=== PATIENT | female | born 2000 | race Two or more races ===

== ENCOUNTER 2024-04-04 01:15 | Emergency (ER) | payer OTHER ==
[~2024-04-04] VITALS: Ht 162.6 cm; Wt 81.6 kg
[2024-04-04 01:58] LABS: BASOPHILS # (AUTO) 0.1 K/UL (0.0-0.2); BASOPHILS % (AUTO) 0.5 % (0.0-2.0); EOSINOPHILS % (AUTO) 0.1 % (0.0-7.0); HEMATOCRIT 38.3 % (31.2-41.9); HEMOGLOBIN 12.8 g/dL (10.9-14.3); LYMPHOCYTES # (AUTO) 1.8 K/uL (0.8-4.8); LYMPHOCYTES % (AUTO) 7.2 % (20.5-51.5); MEAN CORPUSCULAR HEMOGLOBIN 29.9 uug (24.7-32.8); MEAN CORPUSCULAR HGB CONC 33 g/dL (32.3-35.6); MEAN CORPUSCULAR VOLUME 89.5 fL (75.5-95.3); MONOCYTES # (AUTO) 1.2 K/uL (0.1-1.30); MONOCYTES % (AUTO) 4.9 % (0.0-11.0); NEUTROPHILS # (AUTO) 21.7 K/uL (1.8-8.9); NEUTROPHILS % (AUTO) 87.3 % (38.5-71.5); PLATELET COUNT (AUTO) 315 K/uL (179-408); RED BLOOD CELL COUNT(AUTO) 4.29 MIL/uL (3.63-4.92); RED CELL DISTRIBUTION WIDTH 13.5 % (12.3-17.7); WHITE BLOOD COUNT (AUTO) 24.8 K/uL (3.8-11.8)
[2024-04-04] MEDS ORDERED: PROCHLORPERAZINE EDISYLATE 10 MG/2 ML VIAL ONE (02:05)
[2024-04-04] MEDS ORDERED: HALOPERIDOL LACTATE 5 MG/1 ML VIAL ONE (02:05)
[2024-04-04] MEDS ORDERED: diphenhydrAMINE 50 MG/1 ML VIAL ONE (02:05)
[2024-04-04] MEDS: diphenhydrAMINE 50 MG/1 ML VIAL IV ONE (02:06)
[2024-04-04] MEDS: IV NORMAL SALINE 1000 ML BAG IV ONE (02:06)
[2024-04-04] MEDS: HALOPERIDOL LACTATE 5 MG/1 ML VIAL IV ONE (02:06)
[2024-04-04] MEDS: PROCHLORPERAZINE EDISYLATE 10 MG/2 ML VIAL IV ONE (02:06)
[2024-04-04 02:09] LABS: DIFFERENTIAL COMMENT 1
[2024-04-04 02:19] LABS: CALCIUM 9.9 mg/dL (8.5-10.1); CARBON DIOXIDE 20 mmol/L (21-32); CHLORIDE 103 mmol/L (98-107); CREATININE 0.9 mg/dL (0.6-1.3); GLUCOSE 176 mg/dL (74-106); POTASSIUM 3.3 mmol/L (3.5-5.1); SODIUM SERUM 140 mmol/L (136-145); UREA NITROGEN, BLOOD 9 mg/dL (7-18)
[2024-04-04 02:24] LABS: ALANINE AMINOTRANSFERASE 22 U/L (14-59); ALBUMIN 4.2 g/dL (3.4-5.0); ALKALINE PHOSPHATASE 94 U/L (50-136); ASPARTATE AMINOTRANSFERASE 14 U/L (15-37); BILIRUBIN,DIRECT 0.1 mg/dL (0.0-0.2); BILIRUBIN,TOTAL 0.5 mg/dL (0.2-1.0); LIPASE 27 U/L (16-77); TOTAL PROTEIN, SERUM 8.3 g/dL (6.4-8.2)
[2024-04-04 02:26] LABS: PREGNANCY TEST SERUM QUAN < 1 miul/L (0-6)
[2024-04-04] MEDS: IV LACTATED RINGERS SOLUTION 1,000 ML IV ONE (02:45)
[2024-04-04] MEDS ORDERED: PROC25SU31 RC (03:09)
[2024-04-04] MEDS ORDERED: DIPH25TA25 PO (03:09)
[2024-04-04] MEDS ORDERED: LORAZEPAM 2 MG/1 ML VIAL ONE (03:16)
[2024-04-04] MEDS: LORAZEPAM 2 MG/1 ML VIAL IV ONE (03:20)
[2024-04-04 03:23] VITALS: BP 134/78; TEMP 98; O2SAT 98
== END 2024-04-04 03:23 | disposition home or self-care (01) ==
LOC: ER 01:33
DX: R11.2 Nausea with vomiting, unspecified (principal); F12.20 Cannabis dependence, uncomplicated; R10.2 Pelvic and perineal pain
CPT/HCPCS: 99284; 96374; 96375; 96361; 80076; 80048; 83690; 85025; 84702; 36415; J1200; J1630; J2060; J0780; J7120; J7040; A4606; A4663